=== PATIENT | female | born 1945 | race Caucasian/White ===

== ENCOUNTER 2016-11-03 14:06 | Inpatient (IN) | payer OTHER, MEDICARE ==
[~2016-11-03] VITALS: Ht 154.9 cm; Wt 61.0 kg
[2016-11-15] MEDS ORDERED: MELO7.5T4 PO (14:14)
[2016-11-15] MEDS ORDERED: AMLO5TAB2 PO (14:14)
[2016-11-15] MEDS ORDERED: WALKER WHEELS/F1 MIS (14:14)
[2016-11-15] MEDS ORDERED: ALPR0.25 PO (14:14)
[2016-11-15] MEDS ORDERED: LOSA100T3 PO (14:14)
[2016-11-15] MEDS ORDERED: PARO10TA2 PO (14:14)
[2016-11-15] MEDS ORDERED: LOVA40TA PO (14:14)
[2016-11-16] MEDS ORDERED: EXPAREL PERI-ARTICULAR INJECTION (TOTAL VOL. 60 ML) P-ARTICULR SCH ×2 (07:45)
[2016-11-16 07:57] VITALS: BP 153/75; PULSE 66; RESP 18; TEMP 97.7; O2SAT 99
[2016-11-16] MEDS ORDERED: DEXAMETHASONE SOD PHOS 20 MG/5 ML VIAL ONE (08:26)
[2016-11-16] MEDS ORDERED: SODIUM CHLORID 0.9% 500 ML IV SCH (08:30)
[2016-11-16] MEDS ORDERED: LACTATED RINGER'S 1000 ML IV SCH (08:30)
[2016-11-16] MEDS ORDERED: METOPROLOL TARTRATE 25 MG TAB PO PRN (08:30)
[2016-11-16] MEDS: SODIUM CHLORIDE 0.9% IV SCH ×2 (08:30→09:51)
[2016-11-16] MEDS ORDERED: INSULIN HUMAN REGULAR 1,000 UNITS/10 ML VIAL SQ PRN (08:30)
[2016-11-16] MEDS: TRANEXAMIC ACID IV SCH ×2 (08:30→09:51)
[2016-11-16] MEDS ORDERED: ceFAZolin 2 GM PREMIX 50 ML IV SCH (08:30)
[2016-11-16] MEDS ORDERED: VANCOMYCIN 1000 MG/NS 250 ML (for <70 kg) IV SCH ×2 (08:30)
[2016-11-16] MEDS ORDERED: POVIDONE IODINE 7.5% SCRUB 118 ML BOTTLE TOP SCH (08:30)
[2016-11-16] MEDS ORDERED: FAMOTIDINE 20 MG/2 ML VIAL ONE (09:08)
[2016-11-16] MEDS ORDERED: MIDAZOLAM HCL 2 MG/2 ML VIAL ONE (09:08)
[2016-11-16] MEDS ORDERED: ACETAMINOPHEN 1000 MG/100 ML VIAL IV ONE (09:29)
[2016-11-16] MEDS ORDERED: GENTAMICIN SULFATE 80 MG/2 ML VIAL ONE (09:36)
--- NOTE | 2016-11-16 11:37 | PD.OP ---
cc: Anup Peterson MD Operative Report Date of Surgery: Nov 16, 2016 Preoperative Diagnosis: Right hip severe osteoarthritis Postoperative Diagnosis: Same Procedure: Right total hip arthroplasty Anesthesia: Gen. Surgeon: Anup Peterson Literacy Specialist(s): OLI Ruiz The surgical procedure was assisted by my Advanced Registered Nurse Practitioner. My COMPOSITE LAMINATOR presence was necessary throughout this case for the manipulation and positioning of the surgical extremity. My COMPOSITE LAMINATOR was assisting me throughout the duration of this procedure. The skill set of an Advance Registered Nurse Practitioner was medically necessary to complete this procedure. During the surgical case, the surgical elastic knitter hand frame was working at the back table and the Advance Registered Nurse Practitioner was directly assisting me. Operation and Findings: IMPLANT DESCRIPTION: 1. Adrian Gription Cup, acetabular size 48. 2. Adrian AltrX polyethylene, neutral. 4. Corail femoral stem size 9, no collar, standard offset. 5. Femoral head/neck ceramic, 32, +1. ESTIMATED BLOOD LOSS: 250 cc. JUSTIFICATION FOR PROCEDURE: The patient has end-stage osteoarthritis to the hip. There is an attached conservative measures pathway form in the chart that describes the nonoperative measures that were undertaken prior to consideration of surgical management. The patient understood the risks and benefits of surgical management. See my office notes for further details. PROCEDURE: The patient was brought back to the operative theatre. Adequate anesthesia was obtained. The patient received intravenous vancomycin and Ancef. The patient was carefully placed on the operative table. The lower extremity was prepped and draped in the usual sterile fashion. Fluoroscopic images were obtained. We made a standard anterior incision over the hip. We dissected through the TFL fascia, exposing the anterior capsule. Arthrotomy was performed in a T-shaped fashion. The capsule was tagged with a #2 FiberWire. End-stage arthritis was identified. Osteotomy was performed through the femoral neck exposing the acetabulum. Remnants of the labrum were resected and osteophytes were removed. We sequentially reamed the acetabulum. We trialed the hip and placed the final cup into position. This was done under fluoroscopic guidance to obtain the appropriate inclination and anteversion. A manhole cover was placed into the acetabular component. We then placed the final polyethylene into position and confirmed that it was well seated. Capsular attachments on the calcar and the inner aspect of the greater trochanter were resected. On the proximal aspect of the femur we used a rongeur , box osteotome, canal finder, sequential broaches and lateralizing rasp. We calcar planed the proximal femur. Then thoroughly irrigated the wound. We trialed the hip with the appropriate size stem. We placed the final stem in to position and trialed again. The hip was stable while it was externally rotated 70 degrees when the leg was lowered to the floor. The final head was applied, and final fluoroscopic images were obtained. The wound was thoroughly irrigated again. Interarticular injection of liposomal bupivacaine was given. The capsule was closed with #2 FiberWire and #1 Vicryl. The deep fascia was closed with a #2 Stratafix, followed by 2-0 Vicryl in the skin and osbaldo. Postop plan is to weight-bear as tolerated. DVT prophylaxis will be performed with Nichole, MART griggs, early mobilization, and Lovenox followed by aspirin. Anup Peterson MD Nov 16, 2016 11:37
[2016-11-16] MEDS ORDERED: ASPI325T PO (11:39)
[2016-11-16] MEDS ORDERED: NORC5TAB PO (11:39)
[2016-11-16] MEDS ORDERED: ENOX40P SQ (11:39)
[2016-11-16] MEDS ORDERED: MAGNESIUM HYDROXIDE SUSP 30 ML CUP PO PRN (11:45)
[2016-11-16] MEDS ORDERED: BISACODYL 10 MG SUPP PR PRN (11:45)
[2016-11-16] MEDS ORDERED: MORPHINE SULFATE 4 MG/ML INJ IV PUSH PRN (11:45)
[2016-11-16] MEDS ORDERED: ZOLPIDEM TARTRATE 5 MG TAB PO PRN (11:45)
[2016-11-16] MEDS ORDERED: ACETAMINOPHEN/HYDROcodone 325 MG/5 MG TAB PO PRN (11:45)
[2016-11-16] MEDS ORDERED: ALUMINUM/MAGNESIUM/SIMETH 30 ML CUP PO PRN (11:45)
[2016-11-16] MEDS ORDERED: diphenhydrAMINE HCL 50 MG/ML VIAL IV PRN (11:45)
[2016-11-16] MEDS ORDERED: Post-op Orders (for Pharmacy) MISC XX ONE (11:45)
[2016-11-16] MEDS ORDERED: SODIUM CHLORIDE 0.9% FLUSH 5 ML FLUSH IVF PRN (11:45)
[2016-11-16] MEDS ORDERED: NALOXONE HCL 0.4 MG/ML AMP IV PRN (11:45)
[2016-11-16] MEDS ORDERED: ONDANSETRON HCL 4 MG/2 ML VIAL IVP PRN (11:45)
[2016-11-16] MEDS ORDERED: ALPRAZolam 0.25 MG TAB PO PRN (11:45)
[2016-11-16] MEDS ORDERED: fentaNYL CITRATE 250 MCG/5 ML AMP ONE (12:07)
[2016-11-16] MEDS ORDERED: MORPHINE SULFATE 4 MG/ML INJ ONE ×3 (12:07→16:07)
[2016-11-16] MEDS ORDERED: *MEPERIDINE 25 MG INJ VIAL PERIprocedural Use ONLY ONE (12:09)
[2016-11-16] MEDS ORDERED: TRANEXAMIC ACID INJ 600 MG in SODIUM CHLORIDE 0.9% INJ 100 ML IV SCH (12:30)
[2016-11-16] MEDS: SODIUM CHLOR 0.9% 1000 ML INJ 1,000 ML IV SCH ×2 (12:30→23:27)
[2016-11-16] MEDS ORDERED: PROPOFOL 200 MG/20 ML AMP IV ONE (12:30)
[2016-11-16] MEDS ORDERED: ONDANSETRON HCL 4 MG/2 ML VIAL IV PUSH ONE (12:30)
[2016-11-16] MEDS ORDERED: ePHEDrine/NS 25 MG/5 ML SYR IV ONE (12:30)
[2016-11-16] MEDS ORDERED: NEOSTIGMINE 3 MG/3 ML SYR IV ONE (12:30)
[2016-11-16] MEDS ORDERED: LACTATED RINGER'S 1000 ML INJ 2,000 ML IV ONE (12:30)
[2016-11-16] MEDS ORDERED: DO NOT ADM ANY ANTICOAGULANT DRUGS XX PRN (13:00)
--- NOTE | 2016-11-16 13:55 | RADRPT ---
EXAM DATE/TIME: 11/16/2016 10:08 [facility] COMPARISON: No previous studies available for comparison. INDICATIONS : Total right hip placement. MEDICAL HISTORY : Osteoarthritis. SURGICAL HISTORY : None. ENCOUNTER: Initial ACUITY: 1 day PAIN SCORE: Non-responsive. LOCATION: Right hIP. FINDINGS: Examination of the hip demonstrates total hip arthroplasty in satisfactory position. The alignment is anatomic. CONCLUSION: Post surgical changes as above. Vic Sheppard MD on November 16, 2016 at 13:54 Board Certified Radiologist. This report was verified electronically.
--- NOTE | 2016-11-16 14:01 | RADRPT ---
EXAM DATE/TIME: 11/16/2016 13:24 [facility] COMPARISON: No previous studies available for comparison. INDICATIONS : Post-op total right hip arthroplasty. MEDICAL HISTORY : Hypertension. SURGICAL HISTORY : Total left hip arthroplasty. Right rotator cuff surgery. ENCOUNTER: Initial ACUITY: 1 day PAIN SCORE: 7/10 LOCATION: Right hip. FINDINGS: The patient is status post a total hip arthroplasty with a bipolar prosthesis. Prosthesis is well-sea meron. Alignment is anatomic. A fracture is not appreciated. CONCLUSION: Anatomic alignment. Syd Driscoll MD FACR Board Certified Radiologist. This report was verified electronically.
--- NOTE | 2016-11-16 15:39 | PD.CONS ---
HPI Service [facility] Consult Requested By Reason for Consult medical management Primary Care Physician Renetta Martins MD Diagnoses: History of Present Illness Patient is a 71 years old female with history of HTN, anxiety disorder, hyperlipidemia, admitted under Orthopedics service and underwent right total hip arthroplasty today. Patient states has been having intermitted pain over past 2 years worsening last 2 months with increasing difficulty ambulation that she had needed a walker lately for long walks that finally she decided to have surgery. Review of Systems Constitutional: DENIES: Fever, Weight loss, Chills, Change in appetite Endocrine: DENIES: Abnorml menstrual pattern, Heat/cold intolerance, Polydipsia , Polyuria, Polyphagia Eyes: DENIES: Blurred vision, Diplopia, Eye inflammation, Eye pain, Vision loss , Photosensitivity, Double Vision Ears, nose, mouth, throat: DENIES: Tinnitus, Hearing loss, Vertigo, Nasal discharge, Oral lesions, Throat pain, Hoarseness, Ear Pain, Running Nose, Epistaxis, Sinus Pain, Toothache, Odynophagia Respiratory: DENIES: Apneas, Cough, Snoring, Wheezing, Hemoptysis, Sputum production, Shortness of breath Cardiovascular: DENIES: Chest pain, Palpitations, Syncope, Dyspnea on Exertion , PND, Lower Extremity Edema, Orthopnea, Claudication Gastrointestinal: DENIES: Abdominal pain, Black stools, Bloody stools, Constipation, Diarrhea, Nausea, Vomiting, Difficulty Swallowing, Anorexia Genitourinary: DENIES: Abnormal vaginal bleeding, Dysmenorrhea, Dyspareunia, Sexual dysfunction, Urinary frequency, Urinary incontinence, Urgency, Hematuria , Dysuria, Nocturia, Vaginal discharge Musculoskeletal: DENIES: Joint pain, Muscle aches, Stiffness, Joint Swelling, Back pain, Neck pain Integumentary: DENIES: Abnormal pigmentation, Pruritus, Rash, Nail changes, Breast masses, Breast skin changes, Nipple discharge Hematologic/lymphatic: DENIES: Bruising, Lymphadenopathy Immunologic/allergic: DENIES: Eczema, Urticaria Neurologic: DENIES: Abnormal gait, Headache, Localized weakness, Paresthesias, Seizures, Speech Problems, Tremor, Poor Balance Psychiatric: COMPLAINS OF: Anxiety Past Family Social History Allergies: Coded Allergies: No Known Allergies (Unverified , 11/16/16) Past Medical History hypertesnion anxiety disorder hyperlipidemia Past Surgical History left hip surgery 2015 bilateral shoulder surgery - about 15 years ago screening colonoscopy a year ago- reportedly normal Reported Medications losartan/HCTA Paroxetine Xanax amlodipnine Lovastatin ASA Meloxicam Active Ordered Medications see Emr Family History Parkinson's disease- father DM Social History non smoker, occasional wine, no PSA Physical Exam Vital Signs Vital Signs Date Time Temp Pulse Resp B/P Pulse Ox O2 Delivery O2 Flow Rate FiO2 11/16/16 07:57 97.7 66 18 153/75 99 Physical Exam GENERAL: This is a well-nourished, well-developed patient, in no apparent distress. SKIN: No rashes, ecchymoses or lesions. Cool and dry. HEAD: Atraumatic. Normocephalic. EYES: Pupils equal round and reactive. Extraocular motions intact. No scleral icterus. ENT: Nose without bleeding,Throat without erythema,Airway patent. NECK: Trachea midline. No JVD or lymphadenopathy. Supple, nontender, no meningeal signs. CARDIOVASCULAR: Regular rate and rhythm without murmurs, gallops, or rubs. RESPIRATORY: Clear to auscultation. Breath sounds equal bilaterally. No wheezes , rales, or rhonchi. GASTROINTESTINAL: Abdomen soft, non-tender, nondistended. No guarding. MUSCULOSKELETAL: right hip post op dressing in place, moves all extremities spontaneously, sensory intact NEUROLOGICAL: Awake and alert. Cranial nerves II through XII intact. grossly intact Laboratory Laboratory Tests Test 11/16/16 07:55 Blood Type O NEGATIVE Antibody Screen POSITIVE Antibody Identification Anti-D Crossmatch Leukocyte-Reduced Red Blood Cells Blood Bank Comment Imaging Last Impressions Hip and Pelvis X-Ray 11/16/16 1133 Signed Impressions: Service Date/Time: Wednesday, November 16, 2016 13:24 - CONCLUSION: Anatomic alignment. Syd Driscoll MD Hip X-Ray 11/16/16 0000 Signed Impressions: Service Date/Time: Wednesday, November 16, 2016 10:08 - CONCLUSION: Post surgical changes as above. Vic Sheppard MD Assessment and Plan Assessment and Plan 71 years old fema; S/P Righ total hip arthroplasty 11/16 -orthopedics ff -prn pain med -PT consult Hypertension, hyperlipidemia -continue ARB/HCTZ, statins History of anxiety disorder -continue Paxil, Xanax prn on Lovenox for DVT prophylaxis DC planning- home with home PT thank you for this consult, will ff patient in house with you Discussed Condition With patient Beverly Kirby MD Nov 16, 2016 15:39
--- NOTE | 2016-11-16 15:41 | HHI.DCPOC ---
Discharge Care Plan Diagnosis: (1) Primary localized osteoarthrosis of pelvis or thigh (2) Status post total hip replacement, right Your Health Problems Are: Difficulty with ADL Goals to Promote Your Health * To prevent worsening of your condition and complications * To maintain your health at the optimal level Directions to Meet Your Goals Take your medications as prescribed Follow your dietary instruction Follow activity as directed Keep your appointments as scheduled Take your immunizations and boosters as scheduled If your symptoms worsen call your PCP, if no PCP go to Urgent Care Center or Emergency Room Smoking is Dangerous to Your Health. Avoid second hand smoke Call the 24-hour hour crisis hotline for domestic abuse at Nigel Umanzor Nov 16, 2016 15:41
--- NOTE | 2016-11-16 15:42 | HHI.FF ---
Face to Face Verification Diagnosis: (1) Primary localized osteoarthrosis of pelvis or thigh (2) Status post total hip replacement, right Physical Therapy Gait training, Transfer training, bed to chair Hip: Total hip Right LE Weight Bearing: WB as tolerated Right LE Range of Motion: Active ROM Nursing Nursing: Tasha teaching, Dressing changes Dressing Changes: Daily dressing change I have seen patient Laura Nur on 11/16/16. My clinical findings support the need for the requested home health care services because: Limited ability to care for self High risk of falls I certify that my clinical findings support that this patient is homebound because: Post-op weakness Unsteady gait/balance Nigel Umanzor Nov 16, 2016 15:42
[2016-11-16] MEDS ORDERED: COMMODE 3-IN-11 MIS (15:43)
[2016-11-16] MEDS ORDERED: WALKER WHEELS/F1 MIS (15:43)
[2016-11-16] MEDS ORDERED: hydrALAZINE HCL 20 MG/ML VIAL IVP ONE (15:45)
[2016-11-16 16:40] VITALS: BP 143/67; PULSE 87; RESP 16; TEMP 96.5; O2SAT 99
[2016-11-16 20:45] VITALS: BP 137/72; PULSE 89; RESP 17; TEMP 97.9; O2SAT 99
[2016-11-16] MEDS: SODIUM CHLORIDE 0.9% FLUSH 5 ML FLUSH IVF SCH (20:59)
[2016-11-16] MEDS: ACETAMINOPHEN/HYDROcodone 325 MG/5 MG TAB PO PRN (20:59)
[2016-11-16] MEDS ORDERED: amLODIPine BESYLATE 5 MG TAB PO SCH (21:00)
[2016-11-16] MEDS ORDERED: PRAVASTATIN SOD 40 MG TAB PO SCH (21:00)
[2016-11-17 00:25] VITALS: BP 138/66; PULSE 79; RESP 16; TEMP 98; O2SAT 99
[2016-11-17] MEDS: ACETAMINOPHEN/HYDROcodone 325 MG/5 MG TAB PO PRN ×4 (01:56→14:27)
[2016-11-17 04:15] VITALS: BP 141/70; PULSE 76; RESP 16; TEMP 97.5; O2SAT 100
[2016-11-17 07:15] LABS: HEMATOCRIT 31.3 % (35.0-46.0); MEAN CELL VOLUME 95.1 FL (80.0-100.0); MEAN CORPUSCULAR HEMOGLOBIN 31.9 PG (27.0-34.0); MEAN CORPUSCULAR HGB CONC 33.5 % (32.0-36.0); PLATELET COUNT 215 TH/MM3 (150-450); RED BLOOD COUNT 3.29 MIL/MM3 (4.00-5.30); RED CELL DISTRIBUTION WIDTH 13.8 % (11.6-17.2); REVIEW FLAG FINAL; WHITE BLOOD COUNT 8.7 TH/MM3 (4.0-11.0)
[2016-11-17] MEDS: SODIUM CHLOR 0.9% 1000 ML INJ 1,000 ML IV SCH (07:33)
[2016-11-17 08:00] VITALS: BP 128/60; PULSE 89; RESP 18; TEMP 97.3; O2SAT 94
--- NOTE | 2016-11-17 08:30 | HHI.PR ---
Subjective Remarks pain controlled motivated with PT Objective Vitals Vital Signs Date Time Temp Pulse Resp B/P Pulse Ox O2 Delivery O2 Flow Rate FiO2 11/17/16 04:15 97.5 76 16 141/70 100 11/17/16 00:25 98.0 79 16 138/66 99 11/16/16 20:45 97.9 89 17 137/72 99 11/16/16 16:40 96.5 87 16 143/67 99 11/16/16 16:00 98.0 86 14 134/75 99 Nasal Cannula 3 11/16/16 15:00 99 14 140/92 99 Nasal Cannula 3 11/16/16 14:00 83 15 137/70 99 Nasal Cannula 3 11/16/16 13:00 97.9 79 14 155/88 100 Nasal Cannula 3 11/16/16 12:45 78 12 160/84 100 Nasal Cannula 3 11/16/16 12:30 77 11 163/90 100 Nasal Cannula 3 11/16/16 12:15 77 15 157/88 100 Nasal Cannula 3 11/16/16 12:00 97.5 84 14 156/91 99 Nasal Cannula 3 I/O 11/16/16 11/16/16 11/16/16 11/17/16 11/17/16 11/17/16 07:00 15:00 23:00 07:00 15:00 23:00 Intake Total 1400 ml 2106 ml 1612 ml Output Total 750 ml 1400 ml 1650 ml Balance 650 ml 706 ml -38 ml Intake Oral 0 ml 1080 ml 720 ml IV Total 626 ml 892 ml Other 1400 ml 400 ml Output Urine Total 750 ml 1400 ml 1650 ml # Bowel Movements 0 0 Result Diagram: 11/17/16 0627 Imaging Last Impressions Hip and Pelvis X-Ray 11/16/16 1133 Signed Impressions: Service Date/Time: Wednesday, November 16, 2016 13:24 - CONCLUSION: Anatomic alignment. Syd Driscoll MD Hip X-Ray 11/16/16 0000 Signed Impressions: Service Date/Time: Wednesday, November 16, 2016 10:08 - CONCLUSION: Post surgical changes as above. Vic Sheppard MD Objective Remarks GENERAL: awake and alert, NAD SKIN: Warm and dry. HEAD: Normocephalic. EYES: No scleral icterus. No injection or drainage. NECK: Supple, trachea midline. No JVD or lymphadenopathy. CARDIOVASCULAR: Regular rate and rhythm without murmurs, gallops, or rubs. RESPIRATORY: Breath sounds equal bilaterally. No accessory muscle use. GASTROINTESTINAL: Abdomen soft, non-tender, nondistended. MUSCULOSKELETAL: No cyanosis, or edema. right hip - postop dressing in place, good peripheral pulses BACK: No CVA tenderness. Procedures 11/16- S/P IMN- left femur fracture A/P Assessment and Plan 71 years old fema; S/P Rig total hip arthroplasty 11/16 -orthopedics ff -prn pain med -PT consult Hypertension, hyperlipidemia -continue ARB/HCTZ, statins History of anxiety disorder -continue Paxil, Xanax prn DVT prophylaxis per ortho service home with home PT if cleared with Dr. Kristen MAYFIELD. FF up in 2 weeks with Ortho medically stable for DC- PCP ff up with 3-5 days Beverly Kirby MD Nov 17, 2016 08:30
[2016-11-17] MEDS ORDERED: NON-FORMULARY DRUG (Losartan-Hydrochlorothiazide 1 TAB) PO SCH (09:00)
[2016-11-17] MEDS ORDERED: DEXAMETHASONE SOD PHOS 20 MG/5 ML VIAL IV ONE (09:00)
[2016-11-17] MEDS ORDERED: HYDROCHLOROTHIAZIDE 12.5 MG CAP PO SCH (09:00)
[2016-11-17] MEDS ORDERED: PARoxetine HCL 20 MG TAB PO SCH (09:00)
[2016-11-17] MEDS ORDERED: LOSARTAN 50 MG TAB PO SCH (09:00)
[2016-11-17] MEDS ORDERED: MAGNESIUM HYDROXIDE SUSP 30 ML CUP PO SCH (09:15)
[2016-11-17] MEDS ORDERED: ENOXAPARIN SODIUM 40 MG/0.4 ML SYRINGE SQ SCH (11:00)
[2016-11-17 12:00] VITALS: BP 123/58; PULSE 69; RESP 18; TEMP 98.2; O2SAT 93
[2016-11-17] MEDS: SODIUM CHLORIDE 0.9% FLUSH 5 ML FLUSH IVF SCH (12:19)
[2016-11-17 12:29] VITALS: O2SAT 99
--- NOTE | 2016-11-17 13:07 | PD.ORT.PN ---
Subjective Post Op Day #: 1 Subjective Remarks Patient is OOB in chair. Patient states she is having minimal pain. Patient is requesting going home today with home health. Objective Vitals Vital Signs Date Time Temp Pulse Resp B/P Pulse Ox O2 Delivery O2 Flow Rate FiO2 11/17/16 08:00 97.3 89 18 128/60 94 11/17/16 04:15 97.5 76 16 141/70 100 11/17/16 00:25 98.0 79 16 138/66 99 11/16/16 20:45 97.9 89 17 137/72 99 11/16/16 16:40 96.5 87 16 143/67 99 11/16/16 16:00 98.0 86 14 134/75 99 Nasal Cannula 3 11/16/16 15:00 99 14 140/92 99 Nasal Cannula 3 11/16/16 14:00 83 15 137/70 99 Nasal Cannula 3 11/16/16 13:00 97.9 79 14 155/88 100 Nasal Cannula 3 I/O 11/16/16 11/16/16 11/16/16 11/17/16 11/17/16 11/17/16 07:00 15:00 23:00 07:00 15:00 23:00 Intake Total 1400 ml 2106 ml 1612 ml Output Total 750 ml 1400 ml 1650 ml Balance 650 ml 706 ml -38 ml Intake Oral 0 ml 1080 ml 720 ml IV Total 626 ml 892 ml Other 1400 ml 400 ml Output Urine Total 750 ml 1400 ml 1650 ml # Bowel Movements 0 0 Result Diagram: 11/17/16 0627 Procedures Right HUGO Objective Remarks The patient is resting in bed. Dressings changed with scant serosanguineous drainage. Incision well approximated with surgical clips intact. No redness or s/s of infection. Mild ecchymosis. EHL/TA/G intact. 2+ pedal pulse. Calf is soft and nontender. Minimal swelling. + SILT. Assessment & Plan Ortho Post Op Day #: 1 Problem List: Assessment and Plan POD #1: Right HUGO 1. WBAT RLE 2. Lovenox for DVT prophylaxis 3. Ice to the right hip PRN 4. Stable for discharge home with home health today. Nigel Umanzor Nov 17, 2016 13:07
[2016-11-17] MEDS ORDERED: DOCUSATE SODIUM 100 MG CAP PO SCH (21:00)
[2016-11-17] MEDS ORDERED: SENNOSIDES 8.6 MG TAB PO SCH (21:00)
[2016-11-17] MEDS ORDERED: MULTIVITAMINS/MINERALS THERAPEUTIC TAB PO SCH (21:00)
--- NOTE | 2016-11-20 17:44 | HHI.DS ---
Discharge Summary Admission Date Nov 16, 2016 at 07:06 Discharge Date: Nov 17, 2016 Admitting Diagnosis OA of the right hip Status post total hip replacement, right Diagnosis: (1) Primary localized osteoarthrosis of pelvis or thigh Diagnosis: Principal (2) Status post total hip replacement, right Diagnosis: Principal Procedures Right HUGO Brief History This is a 71 year old female patient with severe OA of the right hip CBC/BMP: 11/17/16 0627 PE at Discharge The patient is resting in bed. Dressings changed with scant serosanguineous drainage. Incision well approximated with surgical clips intact. No redness or s/s of infection. Mild ecchymosis. EHL/TA/G intact. 2+ pedal pulse. Calf is soft and nontender. Minimal swelling. + SILT. Hospital Course The patient was admitted to the hospital for severe right hip OA to have a right HUGO. The patient's surgery went well without complication. The patient was placed on DVT prophylaxis post operatively. The patient is WBAT. The patient has a normal diet. The patient was discharged home with home health on POD #1. The patient will f/u in the office in [address] Peterson. Pt Condition on Discharge: Stable Discharge Disposition: Disch w/ Home Health Serv Discharge Instructions Diet Instructions: As Tolerated, No Restrictions Activities You Can Perform: Weight Bearing as Tashi Activities to Avoid: Strenuous Activity Follow up Referrals: Orthopedics with Anup Peterson MD PCP Follow-up - 3-5 Days with PCP SNF/FPC/ with [facility] [phone] New Medications: Aspirin (Aspirin) 325 Mg Tab 325 MG PO DAILY Start Aspirin after Lovenox is completed. Prevent Blood Clot # 30 Ref 0 TAB Commode 3-in-1 (Commode 3-in-1) 1 Mis Mis 1 EA .ROUTE DIRECTED #1 Ref 0 EA Enoxaparin Inj (Lovenox Inj) 40 Mg/0.4 Ml Syr 40 MG SQ DAILY Start Aspirin after Lovenox is completed. Blood Clot Prevention # 10 Ref 0 SYRINGE Hydrocodone-Acetaminophen ([place]) 5-325 mg Tab 1-2 TAB PO Q4H PRN PAIN #60 Ref 0 TAB Walker with Front Wheels (Walker with Front Wheels) 1 Mis Mis 1 EA .ROUTE DIRECTED #1 Ref 0 EA Continued Medications: Alprazolam (Alprazolam) 0.25 Mg Tab 0.25 MG PO Q6H PRN ANXIETY Ref 0 TAB Amlodipine (Amlodipine) 5 Mg Tab 5 MG PO HS Blood Pressure Management #30 Ref 0 TAB Losartan-Hydrochlorothiazide (Losartan-Hydrochlorothiazide) 100-12.5 Mg Tab 1 TAB PO DAILY Blood Pressure Management #30 Ref 0 TAB Lovastatin (Lovastatin) 40 Mg Tab 40 MG PO HS Cholesterol Management #30 Ref 0 TAB Paroxetine (Paroxetine) 10 Mg Tab 10 MG PO DAILY #30 Ref 0 TAB Discontinued Medications: Meloxicam (Meloxicam) 7.5 Mg Tab 7.5 MG PO DAILY Arthritis Pain Ref 0 TAB Nigel Umanzor Nov 20, 2016 17:43
== END 2016-11-17 16:02 | disposition home health service (06) | DRG 470 ==
LOC: HSDI 11-16 07:06 → N06B 11-16 16:37
PROVIDERS: ADMIT Orthopaedic Surgery; ATTEND Orthopaedic Surgery
PROC: 0SR904Z Replacement of Right Hip Joint with Ceramic on Polyethylene Synthetic Substitute, Open Approach (ICD-10-PCS; principal; 2016-11-16 09:31)
DX: M16.11 Unilateral primary osteoarthritis, right hip (principal); I10 Essential (primary) hypertension; E78.5 Hyperlipidemia, unspecified; F41.9 Anxiety disorder, unspecified; M25.751 Osteophyte, right hip; F32.9 Major depressive disorder, single episode, unspecified
CPT/HCPCS: 73502; 76000; 85027; 86077; 86850; 86870; 86900; 86901; 86920; 86922; 94150; C1776; C9290; J0131; J0690; J1100; J1580; J1650; J2175; J2250; J2270; J2405; J2710; J3010; J7030; J7120